=== PATIENT | male | born 1990 | race Two or more races ===

== ENCOUNTER 2019-11-18 19:15 | Emergency (ER) | payer BC, OTHER ==
[~2019-11-18] VITALS: Ht 170.2 cm; Wt 74.8 kg
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
[2019-11-18] MEDS ORDERED: HYDROCODONE/APAP 10/325MG 1 EA TABLET PO ONE (20:00)
[2019-11-18] MEDS ORDERED: IBUPROFEN 600 MG TABLET PO ONE ×2 (20:00→20:03)
[2019-11-18] MEDS ORDERED: HYDROCODONE/APAP 10/325MG 1 EA TABLET ONE (20:03)
--- NOTE | 2019-11-18 20:05 | NUR ---
MEDS GIVEN, RT AT BEDSIDE
--- NOTE | 2019-11-18 20:25 | NUR ---
XRAY AT BEDSIDE
[2019-11-18 22:00] VITALS: BP 129/75
== END 2019-11-18 22:47 | disposition home or self-care (01) ==
LOC: ER 19:16
DX: S52.121A Displaced fracture of head of right radius, initial encounter for closed fracture (principal); S70.01XA Contusion of right hip, initial encounter; M25.511 Pain in right shoulder; F41.9 Anxiety disorder, unspecified; V00.131A Fall from skateboard, initial encounter; Y93.51 Activity, roller skating (inline) and skateboarding; Y92.331 Roller skating rink as the place of occurrence of the external cause; Y99.8 Other external cause status
CPT/HCPCS: 71045-TC; 73030-TC; 73080-TC; 73502